=== PATIENT | female | born 1960 | race Caucasian/White ===

== ENCOUNTER 2016-07-09 02:11 | Emergency (ER) | payer OTHER ==
--- NOTE | ~2016-07-09 | CT4 ---
[facility] A Service of [facility] RADIOLOGY TEXT RESULTS PATIENT: MARTINEZ GREENFIELD LOCATION: [facility] : 56 UNIT #: [id number] AGE: [address]: Tracy Jones MD SEX: F ORDER DR: [id number] [facility] [address] [place], [place] [address] [id number] E MR#: [id number] Acc #: [id number] NAME: MARTINEZ GREENFIELD : 1960 SEX: F STUDY DATE/TIME: 07/09/2016 2:27 UNIT: [facility] ROOM: STUDY DESCRIPTION: CT Abd and Pelv Wo Cont Attending Physician: Tracy Jones M.D. Ordering Physician: Tracy Jones M.D. Primary Care Physician: Livia Robins M.D. MEDICAL IMAGING REPORT This report is preliminary unless electronic signature is present EXAM CT abdomen and pelvis without contrast DATE 07/09/2016 HISTORY 55-year-old female with left flank pain and left hip pain since last night. COMPARISON None. PROCEDURE 3 mm noncontrast axial images through the abdomen and pelvis. Enteric contrast was not administered. Sagittal and coronal reformatted images were obtained. This CT exam was performed with one or more of the following radiation dose reduction techniques: Automatic exposure control, adjustment of mA and/or kV according to patient size, and iterative reconstruction. FINDINGS ABDOMEN FINDINGS: Punctate nonobstructing stone is seen in the left lower renal pole. Low-density lesion in the left lower renal pole measures 10 mm, compatible with the appearance of a cyst. An 8 mm high-density lesion is seen anteriorly within the right mid kidney, of higher density than expected for a simple cyst. Lung bases are clear. Liver, gallbladder, spleen, pancreas and adrenal glands are normal. Unopacified bowel is unremarkable. PELVIS FINDINGS: Right ovarian cyst measures 2.2 cm. Urinary bladder, uterus and rectum are normal. No pelvic adenopathy or free fluid is identified. The appendix is not well visualized but no pericecal [facility] A Service of [facility] RADIOLOGY TEXT RESULTS PATIENT: MARTINEZ GREENFIELD [id number] : 56 UNIT #: [id number] AGE: [address]: Tracy Jones MD SEX: F ORDER DR: inflammation is seen. No acute osseous abnormalities are seen. IMPRESSION 1. 2 mm nonobstructing stone in the left lower renal pole with small left renal cyst. 2. No ureteral calculus or hydronephrosis or perinephric inflammation seen. 3. 8 mm hyperdense right renal lesion is nonspecific. It could represent a solid lesion or hemorrhagic proteinaceous cyst. Consider CT abdomen without and with contrast renal mass protocol follow up on a non-emergent basis. 4. 2.2 cm right ovarian cyst. 5. The appendix is not well visualized but no pericecal inflammation is seen. Dictated by... Gisela Stapleton M.D. THIS IS AN ELECTRONICALLY VERIFIED REPORT Gisela Stapleton M.D. at 07/09/2016 9:58 PM [facility]/jose TD: 07/09/2016 03:34 JOB #: [id number] MEDICAL IMAGING REPORT Page 1 of 1 COPY
--- NOTE | ~2016-07-09 | CR150 ---
[facility] A Service of [facility] RADIOLOGY TEXT RESULTS PATIENT: MARTINEZ GREENFIELD LOCATION: [facility] : 56 UNIT #: [id number] AGE: [address]: Tracy Jones MD SEX: F ORDER DR: [id number] [facility] [address] [place] [address] [place], [place] [address] [id number] E MR#: [id number] Acc #: [id number] NAME: MARTINEZ GREENFIELD. : 1960 SEX: F STUDY DATE/TIME: 07/09/2016 1:35 UNIT: [facility] ROOM: STUDY DESCRIPTION: CR Hip Min 2 Views Lt Attending Physician: Tracy Jones M.D. Ordering Physician: Tracy Jones M.D. Primary Care Physician: Livia Robins M.D. MEDICAL IMAGING REPORT This report is preliminary unless electronic signature is present EXAM AP pelvis, frog-view left hip. DATE 07/09/2016 HISTORY Left hip pain for 2 days. No known injury. COMPARISON None. FINDINGS No pelvic fracture, hip fracture or hip dislocation is seen. Hip joint spaces appear well preserved. Superolateral acetabular osteophyte formation is present bilaterally. Suspected facet arthropathy on the right at L5-S1. No osteolytic or osteoblastic abnormalities are identified. IMPRESSION 1. Mild spurring at the superolateral acetabular margins bilaterally. Hip joint spaces appear well maintained. 2. No acute abnormality of the pelvis or left hip. Dictated by... Gisela Stapleton M.D. THIS IS AN ELECTRONICALLY VERIFIED REPORT Gisela Stapleton M.D. at 07/09/2016 9:58 PM [facility]/psc [facility] A Service [facility] RADIOLOGY TEXT RESULTS PATIENT: MARTINEZ GREENFIELD LOCATION: [facility] : 56 UNIT #: [id number] AGE: [address]: Tracy Jones MD SEX: F ORDER DR: TD: 07/09/2016 02:58 JOB #: [id number] MEDICAL IMAGING REPORT Page 1 of 1 COPY
[~2016-07-09 02:11] MED LIST: ATARAX PO; FLEXERIL10 M1 PO; IBUPROFEN IB200 M1 PO; IBUPROFEN600 MG; INDOCIN SR75 MG PO; NERVE PILL; NO MEDICATIONS; TYLENOL #3 PO; ULTRAM PO; VICODIN 5/500 T1 TAB PO
== END 2016-07-09 03:38 | disposition home or self-care (01) ==
LOC: CED 02:11
DX: N28.1 Cyst of kidney, acquired (principal); M54.32 Sciatica, left side; E78.5 Hyperlipidemia, unspecified; F41.9 Anxiety disorder, unspecified; Z79.899 Other long term (current) drug therapy
CPT/HCPCS: 73502; 74176; 99284

== ENCOUNTER 2016-11-10 00:33 | Emergency (ER) | payer BC ==
[~2016-11-10] VITALS: Ht 172.7 cm; Wt 78.0 kg
--- NOTE | ~2016-11-10 | EKG ---
PATIENT: MARTINEZ GREENFIELD UNIT #: [id number] Ventricular Rate: 84 BPM Atrial Rate: 84 BPM P-R Interval: 164 ms QRS Duration: 76 ms Q-T Interval: 350 ms QTC Calculation(Bezet): 413 ms P [place]: 69 degrees Calculated R [place]: 16 degrees Calculated T [place]: 69 degrees Diagnosis Line: Normal sinus rhythm Diagnosis Line: Septal infarct , age undetermined Nonspecific ST Diagnosis Line: abnormality Diagnosis Line: Abnormal ECG Diagnosis Line: No previous ECGs available Diagnosis Line: Confirmed by MELLY DACOSTA MD ([id number]) on 11/11/2016 Diagnosis Line: 2:01:08 PM INTERPRETING MD: PRANEETH SCHROEDER
--- NOTE | ~2016-11-10 | CR72 ---
[facility] A Service of [facility] RADIOLOGY TEXT RESULTS PATIENT: MARTINEZ GREENFIELD LOCATION: [facility] : 56 UNIT #: [id number] AGE: [address]: Bharat Nunez MD SEX: F ORDER DR: [id number] [facility] [address] [place], [place] [address] [id number] E MR#: [id number] Acc #: [id number] NAME: MARTINEZ GREENFIELD. : 1960 SEX: F STUDY DATE/TIME: 11/10/2016 1:14 UNIT: [facility] ROOM: STUDY DESCRIPTION: CR Chest Single View Portable Attending Physician: Bharat Nunez M.D. Ordering Physician: Bharat Nunez M.D. Primary Care Physician: Livia Robins M.D. MEDICAL IMAGING REPORT This report is preliminary unless electronic signature is present EXAM Portable chest INDICATIONS Cough and chest congestion for the past 2 days. PROCEDURE Frontal view of the chest. COMPARISON STUDIES 03/01/2014 FINDINGS Mild cardiomegaly. Pulmonary vessels unchanged. No new dense consolidation visible pleural fluid or pneumothorax. IMPRESSION No active process Dictated by... Michael Brandon M.D. THIS IS AN ELECTRONICALLY VERIFIED REPORT Michael Brandon M.D. at 11/11/2016 10:04 PM [facility]/evin TD: 11/10/2016 13:48 JOB #: [id number] MEDICAL IMAGING REPORT Page 1 of 1 COPY
[2016-11-10 01:39] LABS: POC - CKMB 1.6 ng/mL (0.0-7.9); POC - TROPONIN <0.05 ng/mL (<=0.05)
[2016-11-10 01:40] LABS: BASOPHIL# 0.1 X10e3 (0-0.3); BASOPHIL% 0.5 % (0-2.5); EOSINOPHIL# 1.2 X10e3 (0-0.7); EOSINOPHIL% 7.2 % (0.0-7.0); HEMATOCRIT 35.8 % (35.0-45.0); HEMOGLOBIN 11.7 gm/dL (12.0-16.0); LYMPHOCYTE# 1.9 X10e3 (1.0-3.5); LYMPHOCYTE% 11.8 % (17.0-45.0); MEAN CELL VOLUME 84.6 FL (83-96); MEAN CORPUSCULAR HEMOGLOBIN 27.7 PG (28-34); MEAN CORPUSCULAR HGB CONC 32.7 g/dL (30-36); MEAN PLATELET VOLUME 6.9 FL (6.5-11.5); MONOCYTE% 5.9 % (3.0-12.0); NEUTROPHIL# 12.1 X10e3 (1.5-7.1); NEUTROPHIL% 74.6 % (40-75); PLATELET COUNT 326 X10e3 (140-420); RED BLOOD COUNT 4.23 X10e (3.90-5.30); RED CELL DISTRIBUTION WIDTH 14.4 % (11.0-15.5); WHITE BLOOD COUNT 16.3 X10e3 (4.0-10.5)
[2016-11-10 01:41] LABS: DIFF IND YES
[2016-11-10 02:11] LABS: CALCIUM SERUM 9.2 mg/dL (8.4-10.2); CREATININE SERUM 0.6 mg/dL (0.6-1.4); GLOM FILT RATE Estimated 101.2 mL/min (>60); POTASSIUM 3.4 mmol/L (3.5-5.1)
[2016-11-10 02:25] LABS: PLATELET ESTIMATE NORMAL (NORMAL)
[2016-11-10 02:26] LABS: HYPERSEGMENTED POLYS PRESENT; RBC NORMAL YES; SMUDGE CELLS 3 /100
[2016-11-10 03:22] LABS: POC - CKMB 3.1 ng/mL (0.0-7.9); POC - TROPONIN <0.05 ng/mL (<=0.05)
== END 2016-11-10 03:46 | disposition home or self-care (01) ==
LOC: CED 00:33
PROVIDERS: Emergency Medicine
DX: J20.9 Acute bronchitis, unspecified (principal); R07.89 Other chest pain; J06.9 Acute upper respiratory infection, unspecified; Z79.899 Other long term (current) drug therapy; E78.00 Pure hypercholesterolemia, unspecified
CPT/HCPCS: 36415; 71010; 80048; 82553; 84484; 85025; 93005; 94640; 99285